=== PATIENT | female | born 1965 | race Caucasian/White ===

== ENCOUNTER 2022-04-26 18:39 | Emergency (ER) | payer OTHER ==
[~2022-04-26] VITALS: Ht 175.3 cm; Wt 105.7 kg
[2022-04-26 19:07] VITALS: BP 127/61
--- NOTE | 2022-04-26 20:39 | NUR ---
PT AMBULATED TO BED #3
--- NOTE | 2022-04-26 20:56 | NUR ---
Patient being evaluated by physician at bedside.
[2022-04-26] MEDS ORDERED: KETOROLAC 30 MG/ML VIAL IM ONE (21:05)
[2022-04-26] MEDS ORDERED: ACETAMINOPHEN EXTRA STRENGTH 500 MG TAB PO ONE (21:05)
--- NOTE | 2022-04-26 21:14 | NUR ---
57/F BIB SELF C/C RIGHT FOOT/ANKLE PAIN S/P FALL X3PM. PER PATIENT PAIN IS 8/10, INTERMITTENT AND "SHOOTING". PATIENT STATED SHE IS ABLE TO WALK BUT THE PAIN MAKES IT UNCOMFORTABLE. PATIETN DENIES LOC/ HEAD INJURY. ROM INTACT. NO DISCOLORATION OR SWELLNIG NOTED TO THE AREA. PATIETN IS AAOX4 AND AMBULATORY. PLACED IN BED WITH BLANKET. BED LOW AND LOCKED. SIDE RAIL UP X1 FOR SAFETY. ALL NEEDS MET. DENIES PMHX, RX NKA
[2022-04-26] MEDS ORDERED: IBUP-1842 PO (21:38)
[2022-04-26] MEDS ORDERED: ACET-10509 PO (21:38)
--- NOTE | 2022-04-26 22:30 | NUR ---
Patient being evaluated by physician at bedside.
[2022-04-26 22:31] VITALS: BP 126/70
--- NOTE | 2022-04-26 22:31 | NUR ---
Patient discharged with v/s stable. Written and verbal after care instructions given AN[facility]AIN and explained. Patient alert, oriented and verbalized understanding of instructions. Ambulatory with steady gait. All questions addressed prior to discharge. ID band removed. Patient advised to follow up with PMD. Rx of IBUPROFEN, AND TYLENOL given.
--- NOTE | 2022-04-26 22:44 | NUR ---
The patient's care was reviewed and supervised by Taylor Henning RN.
== END 2022-04-26 22:31 | disposition home or self-care (01) ==
LOC: MED 18:39
DX: S80.01XA Contusion of right knee, initial encounter (principal); W18.30XA Fall on same level, unspecified, initial encounter; Y93.89 Activity, other specified; Y92.89 Other specified places as the place of occurrence of the external cause; Y99.8 Other external cause status
CPT/HCPCS: 73562; 73610; 96372; 99284; J1885; Q0092